=== PATIENT | male | born 1990 | race Caucasian/White ===

== ENCOUNTER 2016-08-24 13:09 | Emergency (ER) | payer OTHER ==
[~2016-08-24] VITALS: Ht 175.3 cm; Wt 102.1 kg
[~2016-08-24 13:09] MED LIST: CETI10TA84 PO
[2016-08-24 13:12] VITALS: Ht 175.3 cm; Wt 102.1 kg
[2016-08-24] MEDS ORDERED: SODIUM CHLORIDE 0.9% 1000ML 1,000 ML IV STA ×2 (13:48→15:35)
[2016-08-24] MEDS ORDERED: ACET-1256 PO (13:57)
[2016-08-24] MEDS ORDERED: BUPR-83 PO (13:57)
[2016-08-24] MEDS ORDERED: NYSS/ PO (13:57)
[2016-08-24] MEDS ORDERED: ACETAMINOPHEN IV 650 MG in EMPTY BAG 0 ML IV ONE (14:00)
[2016-08-24] MEDS ORDERED: MAGIC SWIZZLE PO ONE ×2 (14:00→19:00)
[2016-08-24 14:13] VITALS: O2SAT 98
--- NOTE | 2016-08-24 14:15 | DIAGNOSTIC IMAGING REPORT ---
CHEST ONE VIEW PORTABLE CLINICAL HISTORY: fever/cough dyspnea COMPARISON STUDY: No previous studies for comparison. FINDINGS: The bones soft tissues and hemidiaphragms are normal. The cardiomediastinal silhouette is normal. The lungs are clear. The pulmonary vasculature is normal. IMPRESSION: Negative chest. Electronically signed by: Abad Chacon M.D. 08/24/2016 2:14 PM Dictated Date/Time: 08/24/2016 2:14 PM
[2016-08-24 14:55] LABS: BASO % 0.2 %; BASO ABS # 0.02 K/uL (0-0.2); COMPLETE YES; EOS % 1.9 %; HEMATOCRIT 49.6 % (42-52); IG% 0.3 %; LYMPH % 8.3 %; LYMPH ABS # 0.94 K/uL (1.2-3.4); MEAN CELL VOLUME 78.9 fL (80-100); MEAN CORPUSCULAR HEMOGLOBIN 29.1 pg (25-34); MEAN CORPUSCULAR HGB CONC 36.9 g/dl (32-36); MEAN PLATELET VOLUME 9.6 fL (7.4-10.4); MONO % 11.6 %; NEUT % 77.7 %; PLATELET COUNT 314 K/uL (130-400); RED BLOOD COUNT 6.29 M/uL (4.7-6.1); WHITE BLOOD COUNT 11.37 K/uL (4.8-10.8)
[2016-08-24 15:11] LABS: CREATININE 0.95 mg/dl (0.60-1.40)
[2016-08-24 15:12] LABS: BUN/CREATININE RATIO 7.9 (10-20); CALCIUM 9.7 mg/dl (8.5-10.1); MAGNESIUM 2.2 mg/dl (1.8-2.4); POTASSIUM 3.7 mmol/L (3.5-5.1)
[2016-08-24] MEDS ORDERED: LIDOCAINE HCL 2% VISCOUS SOLN 1.25 ML, DiphenhydrAMINE HCL SYRUP 3.125 MG, ALUMINUM/MAG... MT ONE ×8 (15:15→19:15)
[2016-08-24 15:21] LABS: ALB/GLOB RATIO 0.9 (0.9-2); C-REACTIVE PROTEIN 16.1 mg/dl (0-0.29); THYROID STIMULATING HORMONE 1.37 uIu/ml (0.300-4.500)
[2016-08-24 15:31] LABS: ANTI-STREP O SCR: 5YRS OR > NEG IU/ml (<200 IU)
[2016-08-24] MEDS ORDERED: AMPICILLIN/SULBACTAM SOD INJ 3,000 MG in SODIUM CHLORIDE 0.9% 100ML 100 ML IV ONE (15:45)
[2016-08-24 16:28] VITALS: TEMP 36.9
[2016-08-24 17:01] LABS: URINE APPEARANCE CLEAR (CLEAR); URINE BILIRUBIN NEG (NEG); URINE COLOR DK YELLOW; URINE NITRITE NEG (NEG); UROBILINOGEN NEG (NEG); ZZUR CULT IF INDIC CLEAN CATCH NO
[2016-08-24 17:04] LABS: MANUAL MICROSCOPIC REQUIRED? NO; REVIEW REQ? NO
[2016-08-24 17:18] LABS: BENZODIAZEPINE, URINE NEG (NEG); COCAINE,URINE NEG (NEG); PHENCYCLIDINE, URINE NEG (NEG)
[2016-08-24] MEDS ORDERED: AZITHROMYCIN 250 MG TAB PO STA ×2 (17:22→18:34)
[2016-08-24] MEDS ORDERED: CEFTRIAXONE SOD INJ 250 MG in DEXTROSE 5% 25ML 25 ML IV ONE (17:30)
[2016-08-24] MEDS ORDERED: MAGIC1 PO (19:09)
[2016-08-24] MEDS ORDERED: AMOX875T PO (19:09)
[2016-08-24] MEDS ORDERED: HYDR-5688 PO (19:09)
[2016-08-24] MEDS ORDERED: VALA1TAB2 PO (19:09)
--- NOTE | 2016-08-24 19:10 | EMERGENCY ROOM VISIT NOTE ---
History First contact with patient: 13:23 Chief Complaint: INFECTION Stated Complaint: ORAL FUNGAL INFECTION, SORE THROAT-PAIN IN URETHRA Nursing Triage Summary: Sore throat, fever, penile discharge History of Present Illness The patient is a 25 year old male who presents to the Emergency Department by private vehicle for evaluation of a possible oral infection. The patient was recently honeymooning in [place] with his . on Sunday he noticed what he thought were cold sores in his mouth. He does report a history of having cold sores in the past, but reports that these were more painful. He did well throughout the day, but upon awakening Sunday he was noting worsening blisters as well as whitish patches to his mouth. [place] who diagnosed him with thrush. He was placed on nystatin liquid formula. On Sunday he reports that he noticed some worsening symptoms as well as mucus discharge from the tip of his penis and dysuria. Upon returning home last evening, they had seen a provider at a walk-in clinic who had performed a rapid strep test as well as urethral swab for GC and chlamydia. He was directed to the emergency Department for further evaluation and management. The patient admits to smoking marijuana daily while in [place]. They did buy a new smoking device and clean it for smoking. His smoked from the same device. They ate and drank the same things. There was no new or risky sexual behaviors. No new partners. No IV drug use. No risk for STDs otherwise. They deny any other drug use. The patient rates his current discomfort as a 10/10. He reports pain with swallowing. He reports mild headaches. He denies any neck stiffness. He reports no nausea, vomiting, abdominal pain, chest pain, or palpitations. He reports no history of similar symptoms. Review of Systems A complete 10-point Review of Systems was discussed with the patient, with pertinent positives and negatives listed in the History of Present Illness. All remaining Review of Systems questions can be considered negative unless otherwise specified. Past Medical/Surgical History Medical Problems: (1) No Known Active Medical Problems Social History Smoking Status: Never Smoker Smokeless Tobacco Use: No Alcohol Use: occasionally Drug Use: none Marital Status: Housing Status: lives with significant other Occupation Status: [employer] student Current/Historical Medications Scheduled Amoxicillin & Pot Clavulanate (Augmentin 875-125 mg), 875 MG PO BID Bupropion (Wellbutrin), 50 MG PO DAILY Valacyclovir Hcl (Valtrex), 1,000 MG PO BID Scheduled PRN Acetaminophen (Tylenol), 1,000 MG PO UD PRN for Pain Diphenhy/Alum/Mag/Sucralfa (Magic Swizzle - Diphenhy/Alum/Mag/Sucralfa), 1 TSP PO Q4H PRN for Pain Hydrocodone/Acetaminophen 5MG/325MG ([place] 5MG/325MG), 1-2 TABLET PO Q4H PRN for Pain Nystatin (Nystatin Suspension), 1 DOSE PO UD PRN for Pain Allergies Coded Allergies: No Known Allergies (Unverified , 08/24/16) Physical Exam Vital Signs Date Time Temp Pulse Resp B/P Pulse Ox O2 Delivery O2 Flow Rate FiO2 08/24/16 19:52 95 167/95 98 08/24/16 18:55 97 08/24/16 17:57 96 16 148/75 99 Room Air 08/24/16 16:28 36.9 113 17 145/90 97 Room Air 08/24/16 15:10 105 16 138/91 96 Room Air 08/24/16 14:39 122 08/24/16 14:13 98 Room Air 08/24/16 13:12 38.4 134 20 160/81 97 Room Air Pain Rating (0-10): 10 Physical Exam VITAL SIGNS - Vital signs and nursing notes were reviewed. GENERAL - Well nourished, well developed 25-year-old male in no acute distress. Pt communicates well with provider and answers questions appropriately. SKIN - Without rash. HEAD - NC/AT with no obvious deformities. EYES - PERRL with EOMI bilaterally. Sclera with mild injection and tearing noted to the LEFT eye. Palpebral conjunctiva pink and moist. EARS - No deformities of external structures noted on gross examination bilaterally. No pain elicited with palpation of the tragus bilaterally. External auditory canals without discharge or otorrhea. Tympanic membranes pearly orosco without retraction or bulging. without fluid or purulent material visualized behind the TM. Handle of malleus, umbo, cone of light, pars tensa/ flaccid all easily visualized. NOSE - Midline and without cyanosis. No purulent drainage noted. Nasal mucosa without mucus discharge. MOUTH/OROPHARYNX - Without perioral cyanosis. Buccal mucosa excoriated with multiple whitish plaque-like lesions noted to the buccal surfaces as well as the palate. No vesicles. No tonsillar hypertrophy or trismus. No whitish plaques noted. NECK - Neck with FROM. Supple to palpation. No lymphadenopathy noted. No nuchal rigidity. LUNGS - Chest wall symmetric without accessory muscle use, intercostals retractions, or central cyanosis. Normal vesicular breath sounds CTA B/L. No wheezes, rales, or rhonchi appreciated. CARDIAC - RRR with S1/S2. No murmur, rubs, or gallops appreciated. ABDOMEN - Abdominal contour flat without pulsations or visible masses. BS normoactive all four quadrants. No tenderness, palpable masses, hepatosplenomegaly, or ascites noted. Medical Decision & Procedures ER Provider Diagnostic Interpretation: Radiological imaging and reports were reviewed by myself. Radiologist's Interpretation as follows: CHEST ONE VIEW PORTABLE CLINICAL HISTORY: fever/cough dyspnea COMPARISON STUDY: No previous studies for comparison. FINDINGS: The bones soft tissues and hemidiaphragms are normal. The cardiomediastinal silhouette is normal. The lungs are clear. The pulmonary vasculature is normal. IMPRESSION: Negative chest. Laboratory Results 08/24/16 14:40 Red Blood Count 6.29, Mean Corpuscular Volume 78.9, Mean Corpuscular Hemoglobin 29.1, Mean Corpuscular Hemoglobin Concent 36.9, Mean Platelet Volume 9.6, Neutrophils (%) (Auto) 77.7, Lymphocytes (%) (Auto) 8.3, Monocytes (%) (Auto) 11.6, Eosinophils (%) (Auto) 1.9, Basophils (%) (Auto) 0.2, Neutrophils # (Auto ) 8.84, Lymphocytes # (Auto) 0.94, Monocytes # (Auto) 1.32, Eosinophils # (Auto ) 0.22, Basophils # (Auto) 0.02 08/24/16 14:40 Test 08/24/16 13:52 08/24/16 14:40 08/24/16 16:35 Influenza Type A Antigen Neg for Influ A (NEG) Influenza Type B Antigen Neg for Influ B (NEG) White Blood Count 11.37 K/uL (4.8-10.8) Red Blood Count 6.29 M/uL (4.7-6.1) Hemoglobin 18.3 g/dL (14.0-18.0) Hematocrit 49.6 % (42-52) Mean Corpuscular Volume 78.9 fL (80-100) Mean Corpuscular Hemoglobin 29.1 pg (25-34) Mean Corpuscular Hemoglobin Concent 36.9 g/dl (32-36) Platelet Count 314 K/uL (130-400) Mean Platelet Volume 9.6 fL (7.4-10.4) Neutrophils (%) (Auto) 77.7 % Lymphocytes (%) (Auto) 8.3 % Monocytes (%) (Auto) 11.6 % Eosinophils (%) (Auto) 1.9 % Basophils (%) (Auto) 0.2 % Neutrophils # (Auto) 8.84 K/uL (1.4-6.5) Lymphocytes # (Auto) 0.94 K/uL (1.2-3.4) Monocytes # (Auto) 1.32 K/uL (0.11-0.59) Eosinophils # (Auto) 0.22 K/uL (0-0.5) Basophils # (Auto) 0.02 K/uL (0-0.2) RDW Standard Deviation 36.6 fL (36.4-46.3) RDW Coefficient of Variation 12.9 % (11.5-14.5) Immature Granulocyte % (Auto) 0.3 % Immature Granulocyte # (Auto) 0.03 K/uL (0.00-0.02) Erythrocyte Sedimentation Rate 25 mm/hr (0-14) Anion Gap 10.0 mmol/L (3-11) Est Creatinine Clear Calc Drug Dose 142.5 ml/min Estimated GFR () 130.2 Estimated GFR (Non- 112.4 BUN/Creatinine Ratio 7.9 (10-20) Calcium Level 9.7 mg/dl (8.5-10.1) Magnesium Level 2.2 mg/dl (1.8-2.4) Total Bilirubin 1.0 mg/dl (0.2-1) Aspartate Amino Transf (AST/SGOT) 36 U/L (15-37) Alanine Aminotransferase (ALT/SGPT) 79 U/L (12-78) Alkaline Phosphatase 140 U/L (45-117) C-Reactive Protein 16.10 mg/dl (0-0.29) Total Protein 9.1 gm/dl (6.4-8.2) Albumin 4.3 gm/dl (3.4-5.0) Globulin 4.8 gm/dl (2.5-4.0) Albumin/Globulin Ratio 0.9 (0.9-2) Lipase 110 U/L (73-393) Thyroid Stimulating Hormone (TSH) 1.370 uIu/ml (0.300-4.500) Monoscreen NEG (NEG) HIV (1&2) Ab and P24 Ag, 4th Gener NEG (NEG) Anti-Streptolysin O Antibody Screen NEG IU/ml (<200 IU) Urine Color DK YELLOW Urine Appearance CLEAR (CLEAR) Urine pH 5.0 (4.5-7.5) Urine Specific [place] 1.020 (1.000-1.030) Urine Protein NEG (NEG) Urine Glucose (UA) NEG (NEG) Urine Ketones 3+ (NEG) Urine Occult Blood 1+ (NEG) Urine Nitrite NEG (NEG) Urine Bilirubin NEG (NEG) Urine Urobilinogen NEG (NEG) Urine Leukocyte Esterase NEG (NEG) Urine WBC (Auto) 1-5 /hpf (0-5) Urine RBC (Auto) 0-4 /hpf (0-4) Urine Hyaline Casts (Auto) 1-5 /lpf (0-5) Urine Epithelial Cells (Auto) 5-10 /lpf (0-5) Urine Bacteria (Auto) NEG (NEG) Urine Opiates Screen NEG (NEG) Urine Methadone, Qualitative NEG (NEG) Urine Barbiturates NEG (NEG) Urine Phencyclidine (PCP) Level NEG (NEG) Ur Amphetamine/Methamphetamine NEG (NEG) MDMA (Ecstasy) Screen POS (NEG) Urine Benzodiazepines Screen NEG (NEG) Urine Cocaine Metabolite NEG (NEG) Urine Marijuana (THC) POS (NEG) Date/Time Source Procedure Growth Status 08/24/16 13:45 Throat Group A Streptococcus Screen - Final SPECIMEN NEGATIVE FOR GROUP A BETA ST... Complete 08/24/16 13:45 Throat Group A Streptococcus Screen (LEANDRO) - Final NO BETA STREP. ISOLATED. Complete 08/24/16 19:25 Stool Shiga Toxin Test - Final No E. Coli shiga toxin 1 or shiga tox... Complete 08/24/16 19:25 Stool Stool Culture - Final NO SALMONELLA ISOLATED,... Complete Medications Administered Medications (Trade) Dose Ordered Sig/Sumeet Route Start Time Stop Time Status Last Admin Dose Admin Sodium Chloride 1,000 ml @ 999 mls/hr Q1H1M STAT IV 08/24/16 13:48 08/24/16 14:48 DC 08/24/16 15:05 999 MLS/HR Acetaminophen/ Empty Bag 65 ml @ 260 mls/hr NOW ONCE IV 08/24/16 14:00 08/24/16 14:14 DC 08/24/16 15:05 260 MLS/HR Lidocaine HCl 1.25 ml/ Diphenhydramine HCl 3.125 mg/Al Hydroxide/Mg Hydroxide 1.25 ml/ Glycerin 1.25 ml/ Barcode 1 ea 1515 ONCE MT 08/24/16 15:15 08/24/16 15:16 DC 08/24/16 15:15 5 ML Ampicillin Sodium/ Sulbactam Sodium 3000 mg/Sodium Chloride 108 ml @ 200 mls/hr ONE ONCE IV 08/24/16 15:45 08/24/16 16:17 DC 08/24/16 16:30 200 MLS/HR Sodium Chloride 1,000 ml @ 999 mls/hr Q1H1M STAT IV 08/24/16 15:35 08/24/16 16:35 DC 08/24/16 15:35 999 MLS/HR Ceftriaxone Sodium/Dextrose (Rocephin Inj/D5 25ml) 27.5 ml @ 55 mls/hr NOW ONCE IV 08/24/16 17:30 08/24/16 17:59 DC 08/24/16 17:55 55 MLS/HR Azithromycin (Zithromax Tab) 1,000 mg NOW STAT PO 08/24/16 17:22 08/24/16 17:24 DC 08/24/16 17:54 1,000 MG Azithromycin 1,000 mg NOW STAT PO 08/24/16 18:34 08/24/16 18:36 DC 08/24/16 18:34 1,000 MG Lidocaine HCl/ Diphenhydramine HCl/Al Hydroxide/ Mg Hydroxide/ Glycerin/Barcode (VISCOUS LIDOCAINE 2% Soln/ Benadryl Syrup/ Maalox Susp/ Glycerin Anhydrous Soln) 191 ONCE MT 08/24/16 19:15 08/24/16 19:21 DC 08/24/16 19:47 30 ML ED Course Patient was seen and evaluated by myself. Labs were drawn, saline lock in place. The patient was hydrated with 1000 mL normal saline bolus. He received IV Tylenol. He received Magic swizzle mouthwash and was treated with IV Unasyn. I did discuss the case with infectious disease. They agree with performing HIV testing. In addition, they were testing stool cultures for Campylobacter infection which can also present similar only. The patient was reevaluated and feels somewhat better at this time. Laboratory results demonstrate a mild leukocytosis. The patient is not anemic. His ESR and CRP are both elevated. HIV was negative. Lyme was negative. ASO titer was negative. Monospot was unremarkable. Patient was reevaluated and continues to feel better. He is afebrile at this time. He was treated with IV Rocephin as well as oral azithromycin. Patient was provided Magic's was for home. The patient will be placed on Augmentin for home as well as Valtrex. He will follow -up with his primary care provider and infectious disease from today's visit. He will return in the setting of any changing or worsening symptoms. Patient discharged home afebrile and in good condition. Medical Decision Given the patient's presentation and exam findings, I did elect to perform the above-mentioned workup. The patient presents today with a mucositis which is concerning for viral etiology. The question is, sources of infection. The patient recently was traveling out of country. There is no other unusual behavior other than smoking marijuana. His is present in the room is actually not ill with any other similar symptoms. He does have a history of cold sores, however this doesn't compasses entire mouth. In addition, the patient is febrile at this point. He does have what appears to be an early conjunctivitis to the LEFT eye. He is also expansion a urethritis. He denies any sexual exposures or recent intravenous drug use. An HIV test was negative. Lyme titer was negative. ASO titer was negative. Monospot was negative as well. The question, as the patient presents with a Jayda's syndrome like presentation is certainly source. He was unable to provide a stool sample in the emergency setting. We'll Bactrim certainly on the diagnosis list after speaking with infectious disease. He was treated with intravenous Unasyn for ENT coverage for possible secondary infection. He was treated with Rocephin and azithromycin for gonococcal coverage as well. He was placed on Valtrex for viral coverage. He is currently on nystatin for fungal coverage. He was provided magic swizzle. The patient does feel much better at this point. Clinical, the patient is nontoxic-appearing. He feels much better at this time and is comfortable with disposition to home. He'll follow closely with his primary care provider and infectious disease from today's visit. He will return for changing/worsening symptoms. Patient discharged home afebrile and in good condition. In the evaluation and treatment of this patient, the following differential diagnoses were considered: Jayda's syndrome, gonococcal infection, HIV infection, meningitis, encephalitis, viral URI, mono, strep, fungal etiology, amongst others. Impression Primary Impression: Mucositis oral Additional Impressions: Fever Urethritis Departure Information Dispostion Home / Self-Care Condition GOOD Prescriptions Diphenhy/Alum/Mag/Sucralfa (Magic Swizzle - Diphenhy/Alum/Mag/Sucralfa) Susp 1 TSP PO Q4H Y for Pain, #200 ML 1 Refill 30ML DIPHENHYDRAMINE SLN 12.5/5ML 60ML MAALOX 4GM CARAFATE SWISH AND SPIT Prov: Rogelio Pimentel PA-C 08/24/16 Hydrocodone/Acetaminophen 5MG/325MG ([place] 5MG/325MG) Tab 1-2 TABLET PO Q4H Y for Pain, #20 TAB For Initial Treatment Prov: Rogelio Pimentel PA-C 08/24/16 Amoxicillin & Pot Clavulanate (Augmentin 875-125 mg) 1 Tab Tab 875 MG PO BID for 10 Days, #20 TAB Prov: Rogelio Pimentel PA-C 08/24/16 Valacyclovir Hcl (VALTREX) 1 Gm Tab 1000 MG PO BID for 7 Days, #14 TAB Prov: Rogelio Pimentel PA-C 08/24/16 Referrals No Doctor, Assigned (PCP) Patient Instructions My [facility] Additional Instructions You've been seen in the emergency department today for your mucositis, urethritis, and cough. You were prescribed Augmentin to be taken as prescribed. This is an antibiotic. All antibiotics have the potential to cause diarrhea. Stop this medication and contact a medical provider if you were to develop any significant adverse side effects including: wheezing, shortness of breath, passing out, vomiting, or a diffuse rash. Always take antibiotics as directed and COMPLETE the ENTIRE course regardless of the improvement of your symptoms. You have been prescribed [place] to be used for pain control. This is a narcotic medication. You cannot drive or consume alcohol while on this medicine. This medicine should only be used for pain that cannot be controlled with over-the- counter pain medicines. Please use the Magic swizzle mouthwash as needed. Please take the Valtrex as prescribed. Continue your nystatin as previously prescribed. For pain control, you can use the following [id number] medicines (if >12 yo): - Regular strength (325mg/tab) Tylenol (acetaminophen) 2 tabs every 4-6 hours as needed. Do not exceed 12 tablets in a 24 hour period. Avoid taking more than 4 grams (4000 mg) of Tylenol per day. This includes any other sources of acetaminophen you may take on a regular basis. - Regular strength (200 mg/tab) Advil (ibuprofen) 1-2 tabs every 4-6 hours as needed. Do not exceed a dose of 3200 mg per day. Please follow-up with your primary care provider in 24-48 hours for recheck. Return for any changing or worsening symptoms. Problem Qualifiers Additional Impressions: Fever Fever type: unspecified Qualified Codes: R50.9 - Fever, unspecified
[2016-08-24 19:52] VITALS: BP 167/95; PULSE 95; O2SAT 98
[2016-08-29 11:56] LABS: CHLAMYDIA TRACH RNA*** NOT DETECTED (NOT DETECTED); GC (NEIS GONORRHOEAE)RNA** NOT DETECTED (NOT DETECTED)
== END 2016-08-24 19:53 | disposition home or self-care (01) ==
LOC: C.EDB 13:11
DX: K12.30 Oral mucositis (ulcerative), unspecified (principal); R50.9 Fever, unspecified; N34.2 Other urethritis